=== PATIENT | female | born 1960 | race Caucasian/White ===

== ENCOUNTER → 2021-12-26 | Outpatient (CLI) | payer MEDICARE | LOC: KOH-I 08:30 | DX: R74.8 Abnormal levels of other serum enzymes (principal); Z90.49 Acquired absence of other specified parts of digestive tract | CPT/HCPCS: 76705 ==

== ENCOUNTER 2022-03-08 11:27 | Emergency (ER) | payer MEDICARE ==
[2022-03-08 12:24] LABS: HEMOGLOBIN 14.2 gm/dl (12.3-15.3); RED BLOOD COUNT 4.56 M/UL (4.00-5.10); WHITE BLOOD COUNT 8.5 K/UL (4.5-11.0)
[2022-03-08 13:01] LABS: BUN/CREATININE RATIO 11 (0-10)
== END 2022-03-08 15:22 | disposition home or self-care (01) ==
LOC: ER1 11:27
PROVIDERS: Emergency Medicine
DX: R55 Syncope and collapse (principal); R91.8 Other nonspecific abnormal finding of lung field; J44.9 Chronic obstructive pulmonary disease, unspecified; F17.210 Nicotine dependence, cigarettes, uncomplicated; Z88.0 Allergy status to penicillin
CPT/HCPCS: 71045; 73060; 80053; 82550; 82553; 84439; 84443; 84484; 85025; 93005; 99284